=== PATIENT | female | born 1980 | race Caucasian/White ===

== ENCOUNTER 2025-01-14 15:41 | Emergency (ER) | payer MEDICAID ==
[~2025-01-14] VITALS: Ht 162.6 cm; Wt 97.0 kg
[2025-01-14 15:48] VITALS: O2SAT 100
[2025-01-14 16:11] VITALS: BP 165/98; PULSE 76; RESP 18; TEMP 37; O2SAT 99
== END 2025-01-14 18:15 | disposition home or self-care (01) ==
LOC: ER 16:02
DX: S93.409A Sprain of unspecified ligament of unspecified ankle, initial encounter (principal); X50.1XXA Overexertion from prolonged static or awkward postures, initial encounter; Y93.89 Activity, other specified; Y92.89 Other specified places as the place of occurrence of the external cause; Y99.8 Other external cause status
CPT/HCPCS: 73610; 99283